=== PATIENT | female | born 1990 | race Caucasian/White ===

== ENCOUNTER 2022-07-19 16:59 | Emergency (ER) | payer OTHER ==
[~2022-07-19] VITALS: Ht 167.6 cm; Wt 77.1 kg
[2022-07-19] MEDS ORDERED: PROPRANOLOL HCL40 MG PO (17:38)
[2022-07-19] MEDS ORDERED: SYNTHROID75 MCG PO (17:38)
== END 2022-07-19 21:48 | disposition home or self-care (01) ==
LOC: ER 16:59
DX: K52.9 Noninfective gastroenteritis and colitis, unspecified (principal); Z20.822 Contact with and (suspected) exposure to COVID-19

== ENCOUNTER 2022-07-25 21:27 | Emergency (ER) | payer OTHER ==
[~2022-07-25] VITALS: Ht 175.3 cm; Wt 79.4 kg
[~2022-07-25 21:27] MED LIST: PROPRANOLOL HCL40 MG PO; SYNTHROID75 MCG PO
== END 2022-07-26 05:12 | disposition home or self-care (01) ==
LOC: ER 21:27
DX: K59.00 Constipation, unspecified (principal); K52.9 Noninfective gastroenteritis and colitis, unspecified